=== PATIENT | female | born 1985 | race African-American/Black ===

== ENCOUNTER 2018-07-29 02:02 | Emergency (ER) | payer SELFPAY ==
[2018-07-29] MEDS ORDERED: Albuterol 6.7 GM Inhaler INH ONE (02:29)
[2018-07-29] MEDS ORDERED: Codeine/Promethazine 10-6.25 MG/5 ML Syrup 5 ML UD Cup PO ONE (02:30)
--- NOTE | 2018-07-29 02:51 | EDM.PDOC ---
ED HPI GENERAL MEDICAL PROBLEM - General Chief Complaint: Respiratory Problem Stated Complaint: COUGH Time Seen by Provider: 07/29/18 02:19 Source of Information: Reports: Patient History Limitations: Reports: No Limitations - History of Present Illness INITIAL COMMENTS - FREE TEXT/NARRATIVE: The patient presents with a cough for about 2 weeks. She also has some congestion and runny nose. She has ear pressure. She does not smoke and she as no history of asthma. She has not been running much of a fever. She does have some tightness in her chest at times with the cough. Onset: Gradual Duration: Week(s): (2) Location: Reports: Chest Quality: Reports: Other (Tightness) Severity: Moderate Improves with: Reports: None Worsens with: Reports: None Associated Symptoms: Reports: Cough, Shortness of Breath. Denies: Chest Pain, Fever/Chills, Headaches, Nausea/Vomiting Chest Pain Score (Numeric/FACES): 7 - Related Data Allergies Allergy/AdvReac Type Severity Reaction Status Date / Time No Known Allergies Allergy Verified 07/29/18 02:14 Home Meds: Home Meds . 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: - Past Surgical History Female Surgical History: Reports: Section Social & Family History - Tobacco Use Smoking Status *Q: Never Smoker - Caffeine Use Caffeine Use: Reports: None - Recreational Drug Use Recreational Drug Use: No ED ROS GENERAL - Review of Systems Review Of Systems: See Below Constitutional: Reports: No Symptoms HEENT: Reports: No Symptoms Respiratory: Reports: Shortness of Breath, Cough Cardiovascular: Reports: No Symptoms Endocrine: Reports: No Symptoms GI/Abdominal: Reports: No Symptoms : Reports: No Symptoms Musculoskeletal: Reports: No Symptoms ED EXAM, GENERAL - Physical Exam Exam: See Below Exam Limited By: No Limitations General Appearance: Alert, No Apparent Distress Ears: Normal External Exam, Normal Canal, Normal TMs Nose: Normal Inspection Head: Atraumatic, Normocephalic Neck: Normal Inspection, Supple, Non-Tender. No: Lymphadenopathy (L), Lymphadenopathy (R) Respiratory/Chest: No Respiratory Distress, Wheezing (Slight) Cardiovascular: Regular Rate, Rhythm, No Edema, No Murmur GI/Abdominal: Soft, Non-Tender, No Organomegaly, No Mass Back Exam: Normal Inspection Extremities: Normal Inspection Neurological: Alert, Oriented, No Motor/Sensory Deficits Course - Vital Signs Last Recorded V/S: Last Vital Signs Temp 97.9 F 07/29/18 02:10 Pulse 104 H 07/29/18 02:10 Resp 20 07/29/18 02:10 BP 130/79 07/29/18 02:10 Pulse Ox 100 07/29/18 02:42 - Orders/Labs/Meds Orders: Active Orders 24 hr Category Date Time Status RT Post Treatment Assessment [RC] Click to Edit Care 07/29/18 02:29 Active RT Pre-Treatment Assessment [RC] Click to Edit Care 07/29/18 02:29 Active CXR [Chest 2V] [CR] Stat Exams 07/29/18 02:30 Ordered Meds: Medications Discontinued Medications Generic Name Dose Route Start Last Admin Trade Name Michelle PRN Reason Stop Dose Admin Albuterol 1 gm 07/29/18 02:29 07/29/18 02:36 Proventil Hfa INH 07/29/18 02:30 2 puff ONETIME ONE Administration Promethazine HCl/Codeine 10 ml 07/29/18 02:30 07/29/18 02:47 Phenergan With Codeine PO 07/29/18 02:31 10 ml ONETIME ONE Administration - Re-Assessments/Exams Free Text/Narrative Re-Assessment/Exam: 07/29/18 02:49 I ordered a CXR, albuterol and phenergan with codeine for the cough. 07/29/18 03:08 Her CXR looks good. She does feel a little better. I will get her a prescription for more medicine. Departure - Departure Time of Disposition: 03:10 Disposition: Home, Self-Care 01 Condition: Good Clinical Impression: Bronchitis Sinusitis Qualifiers: Sinusitis location: unspecified location Chronicity: acute Recurrence: non- recurrent Qualified Code(s): J01.90 - Acute sinusitis, unspecified - Discharge Information *PRESCRIPTION DRUG MONITORING PROGRAM REVIEWED*: No *COPY OF PRESCRIPTION DRUG MONITORING REPORT IN PATIENT MARILEE: No Referrals: PCP,None [Primary Care Provider] - Skinny Maria PA [Physician Health Informatics Specialist] - 1 Week Forms: ED Department Discharge Additional Instructions: Take the zithromax 2 pills on day 1 and 1 pill on day 2 through 5. Use the inhaler 2 puffs every 4 to 6 hours as needed for shortness of breath. Take the phenergan with codeine for the cough every 6 hours. Please return if you are worse. - My Orders Last 24 Hours: My Active Orders 07/29/18 02:29 RT Post Treatment Assessment [RC] Click to Edit RT Pre-Treatment Assessment [RC] Click to Edit 07/29/18 02:30 CXR [Chest 2V] [CR] Stat - Assessment/Plan Last 24 Hours: My Active Orders 07/29/18 02:29 RT Post Treatment Assessment [RC] Click to Edit RT Pre-Treatment Assessment [RC] Click to Edit 07/29/18 02:30 CXR [Chest 2V] [CR] Stat
--- NOTE | 2018-07-31 14:25 | CR ---
Chest: Two views of the chest were obtained. Comparison: No previous chest x-ray. Heart size and mediastinum are normal. Lungs are clear. Bony structures are within normal limits. Impression: 1. Nothing acute is seen on two-view chest x-ray. Diagnostic code #1
== END 2018-07-29 03:16 | disposition home or self-care (01) ==
LOC: JD.ED 02:02
DX: J40 Bronchitis, not specified as acute or chronic (principal); J01.90 Acute sinusitis, unspecified
CPT/HCPCS: 71046; 94640; 99284; A9270

== ENCOUNTER 2018-08-05 09:00 | Emergency (ER) | payer SELFPAY ==
--- NOTE | 2018-08-05 09:34 | EDM.PDOC ---
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 Patient started spotting yesterday very Lightly. She is going to 1 or 2 pads daily. Several days before this started the patient had 2 positive tests at home. Her last normal period was july. If she is indeed she is a 4 para 3. Patient denies any ongoing medical problems all 3 of her last pregnancies were delivered via . She has no cramping or contractions at this time Pelvic Pain Score (Numeric/FACES): 3 - Related Data Allergies Allergy/AdvReac Type Severity Reaction Status Date / Time No Known Allergies Allergy Verified 08/05/18 09:09 Home Meds: Home Meds . 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 Denies: Dysuria, Frequency, Hematuria, Incontinence ED EXAM - Physical Exam Exam: See Below Exam Limited By: No Limitations General Appearance: Alert, No Apparent Distress Head: Atraumatic, Normocephalic Neck: Normal Inspection, Supple, Non-Tender, Full Range of Motion Respiratory/Chest: No: No Respiratory Distress, Lungs Clear, Normal Breath Sounds Cardiovascular: Regular Rate, Rhythm, No Edema, No Murmur GI/Abdominal Exam: Normal Bowel Sounds, Soft, Other (Right lower quadrant discomfort worse in the midline suprapubic area) Back Exam: No: Normal Inspection, Full Range of Motion Course - Vital Signs Last Recorded V/S: Last Vital Signs Temp 36.4 C 08/05/18 09:10 Pulse 99 08/05/18 09:10 Resp 16 08/05/18 09:10 BP 118/89 08/05/18 09:10 Pulse Ox 99 08/05/18 09:10 - Orders/Labs/Meds Labs: Laboratory Tests 08/05/18 08/05/18 08/05/18 Range/Units 09:24 09:44 09:44 WBC 8.74 (3.98-10.04) K/mm3 RBC 4.67 (3.98-5.22) M/mm3 Hgb 12.2 (11.2-15.7) gm/L Hct 37.8 (34.1-44.9) % MCV 80.9 (79.4-94.8) fl MCH 26.1 (25.6-32.2) pg MCHC 32.3 (32.2-35.5) g/dl RDW Std Deviation 45.7 (36.4-46.3) fL Plt Count 399 H (182-369) K/mm3 MPV 10.0 (9.4-12.3) fl Neutrophils % (Manual) 69 H (40-60) % Band Neutrophils % 0 (0-10) % Lymphocytes % (Manual) 27 (20-40) % Atypical Lymphs % 0 % Monocytes % (Manual) 3 (2-10) % Eosinophils % (Manual) 0 L (0.7-5.8) % Basophils % (Manual) 1 (0.1-1.2) Metamyelocytes % 0 Myelocytes % 0 Promyelocytes % 0 Blast Cells % 0 Plasma Cell % (Manual) 0 Nucleated RBCs 0.0 % Platelet Estimate Adequate RBC Morph Comment Normal PT (9.5-12.1) SECONDS INR APTT (24-31) SECONDS HCG, Qual Positive H (NEGATIVE) HCG, Quant 16.0 mIU/mL Urine Color (Yellow) Urine Appearance (Clear) Urine pH (5.0-8.0) Ur Specific [place] (1.005-1.030) Urine Protein (Negative) Urine Glucose (UA) (Negative) Urine Ketones (Negative) Urine Occult Blood (Negative) Urine Nitrite (Negative) Urine Bilirubin (Negative) Urine Urobilinogen (0.2-1.0) Ur Leukocyte Esterase (Negative) Urine RBC (0-5) /hpf Urine WBC (0-5) /hpf Ur Epithelial Cells (0-5) /hpf Urine Bacteria (FEW) /hpf Urine Mucus (FEW) /hpf Blood Type Gel Antibody Screen Rhogam Indicated 08/05/18 08/05/18 08/05/18 Range/Units 09:44 09:44 11:40 WBC (3.98-10.04) K/mm3 RBC (3.98-5.22) M/mm3 Hgb (11.2-15.7) gm/L Hct (34.1-44.9) % MCV (79.4-94.8) fl MCH (25.6-32.2) pg MCHC (32.2-35.5) g/dl RDW Std Deviation (36.4-46.3) fL Plt Count (182-369) K/mm3 MPV (9.4-12.3) fl Neutrophils % (Manual) (40-60) % Band Neutrophils % (0-10) % Lymphocytes % (Manual) (20-40) % Atypical Lymphs % % Monocytes % (Manual) (2-10) % Eosinophils % (Manual) (0.7-5.8) % Basophils % (Manual) (0.1-1.2) Metamyelocytes % Myelocytes % Promyelocytes % Blast Cells % Plasma Cell % (Manual) Nucleated RBCs % Platelet Estimate RBC Morph Comment PT 10.5 (9.5-12.1) SECONDS INR 0.96 APTT 28 (24-31) SECONDS HCG, Qual (NEGATIVE) HCG, Quant mIU/mL Urine Color Yellow (Yellow) Urine Appearance Clear (Clear) Urine pH 6.0 (5.0-8.0) Ur Specific [place] 1.025 (1.005-1.030) Urine Protein Negative (Negative) Urine Glucose (UA) Negative (Negative) Urine Ketones Negative (Negative) Urine Occult Blood 2+ H (Negative) Urine Nitrite Negative (Negative) Urine Bilirubin Negative (Negative) Urine Urobilinogen 0.2 (0.2-1.0) Ur Leukocyte Esterase Negative (Negative) Urine RBC 5-10 H (0-5) /hpf Urine WBC 0-5 (0-5) /hpf Ur Epithelial Cells 0-5 (0-5) /hpf Urine Bacteria Rare (FEW) /hpf Urine Mucus Few (FEW) /hpf Blood Type AB NEGATIVE Gel Antibody Screen Negative Rhogam Indicated Yes - Re-Assessments/Exams Free Text/Narrative Re-Assessment/Exam: 08/05/18 14:[address] Polanco reviewed the labs and the findings it's pointless to check an ultrasound with quantitative hCG this low and Dr. Polanco agrees. The patient will receive RhOgam and will be discharged with instructions to follow- up with Dr. Polanco on Tuesday. Departure - Departure Time of Disposition: 14:03 Disposition: Home, Self-Care 01 Clinical Impression: Threatened - Discharge Information Referrals: PCP,None [Primary Care Provider] - Mina Polanco MD [Physician] - Forms: ED Department Discharge Additional Instructions: Return to the emergency room with any questions problems worsening symptoms return with heavy bleeding as we discussed. Follow-up with Dr. Polanco on Tuesday
== END 2018-08-05 14:30 | disposition home or self-care (01) ==
LOC: JD.ED 09:00
DX: O20.0 Threatened abortion (principal)
CPT/HCPCS: 36415; 81001; 84702; 84703; 85007; 85027; 85610; 85730; 86850; 86900; 86901; 99284; J2790

== ENCOUNTER 2019-01-09 22:24 | Emergency (ER) | payer BC ==
[2019-01-09] MEDS ORDERED: Metoclopramide 10 MG/2 ML SDV IVPUSH ONE (22:59)
[2019-01-09] MEDS ORDERED: HYDROmorphone 1 MG/ML Syringe IVPUSH ONE (22:59)
--- NOTE | 2019-01-09 22:59 | EDM.PDOC ---
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 Pain is strongly colicky and comes and goes. Started about noon hour today. She is known to be about 14 weeks gestation. She is 6 para 3 .spontaneous abortions 2. I history there is some terminal dysuria. She denies any spotting or bleeding per vagina. She reports her bowels have been more on the constipated side. No blood per rectum. Onset: Today Onset Date: 01/09/19 Onset Time: 12:00 Duration: Hour(s): Location: Reports: Abdomen (Diffuse lower abdominal pain over her uterus. No slight menstrual cramps.) Quality: Reports: Other (Strong colicky component to the pain. I.e.) Severity: Severe (cramps. 8-9 out of 10.) Improves with: Reports: None Worsens with: Reports: None Context: Denies: Activity, Exercise, Lifting, Sick Contact, Trauma, Other Associated Symptoms: Reports: Nausea/Vomiting (Mild nausea so she with the pain but no vomiting). 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 (About mid afternoon she took Tylenol with no relief.) Bilateral Lower Abdomen Pain Score (Numeric/FACES): 9 - Related Data Allergies Allergy/AdvReac Type Severity Reaction Status Date / Time No Known Allergies Allergy Verified 01/10/19 01:06 Home Meds: Home Meds 148/Iron/Folate 6/Dha [Tendera-Ob Softgel] 1 cap PO DAILY 01/10/19 [ History] Past Medical History - Past Health History Medical/Surgical History: Denies 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 Denies: Fever, Chills, Malaise, Weakness HEENT: Reports: No Symptoms Respiratory: Reports: No Symptoms Cardiovascular: Reports: No Symptoms Endocrine: Reports: Fatigue GI/Abdominal: Reports: Abdominal Pain (See history of present illness), Constipation : Reports: Frequency, Other (Some terminal dysuria.) Musculoskeletal: Reports: Back Pain Skin: Reports: No Symptoms (Mild diffuse low back pain) Neurological: Reports: No Symptoms Psychiatric: Reports: No Symptoms Hematologic/Lymphatic: Reports: No Symptoms Immunologic: Reports: No Symptoms ED EXAM - Physical Exam Exam: See Below Exam Limited By: No Limitations General Appearance: Alert, WD/WN, Moderate Distress (She is in obvious pain and discomfort.) Eye Exam: Bilateral Eye: Normal Inspection Throat/Mouth: Normal Inspection, Normal Lips, Normal Teeth, Normal Oropharynx Respiratory/Chest: No Respiratory Distress, Lungs Clear, Normal Breath Sounds, No Accessory Muscle Use, Respiratory Distress (20/m due to pain response) Cardiovascular: Normal Peripheral Pulses, Regular Rate, Rhythm, No Edema, No Murmur, No Rub, Tachycardia (Mild tachycardia at 10 2/m.) GI/Abdominal Exam: Abnormal Bowel Sounds (Flaccid bowel sounds.), Other (Gravid uterus which would measure 18 weeks clinically. She is supposedly 14 weeks gestation i.e. uterus is larger than one would anticipate. Apparently previous ultrasound demonstrated only one pedersen fetus.) Fundal Height In cm: 18 Heart Tones: Not [place] (Not able to hear my stethoscope.) Heart Tones per Min: 168 (This was on abdominal ultrasound.) Movement: Active (On Doppler ultrasound.) Back Exam: Normal Inspection, Full Range of Motion. No: CVA Tenderness (L), CVA Tenderness (R) Extremities: Normal Inspection, Normal Range of Motion, Non-Tender Neurological: Alert, Oriented, CN II-XII Intact, Normal Cognition Psychiatric: Anxious, Other Skin Exam: Warm (In a good deal of pain.), Dry, Intact, Normal Color, No Rash Course - Vital Signs Last Recorded V/S: Last Vital Signs Temp 36.4 C 01/09/19 22:33 Pulse 102 H 01/09/19 22:33 Resp 20 01/09/19 22:33 BP 143/88 H 01/09/19 22:33 Pulse Ox 97 01/09/19 22:33 - Orders/Labs/Meds Orders: Active Orders 24 hr Category Date Time Status OB Ltd 1 or More Fetus [US] Stat Exams 01/09/19 22:55 Taken Dextrose 5%-0.9% NaCl [Dextrose 5%-Normal Saline] 1,000 Med 01/09/19 23:00 Active ml IV ASDIRECTED Medication Orders Dextrose/Sodium Chloride (Dextrose 5%-Normal Saline) 1,000 mls @ 999 mls/hr IV ASDIRECTED JORDI Last Admin: 01/09/19 23:12 Dose: 999 mls/hr Labs: Laboratory Tests 01/09/19 01/09/19 01/09/19 Range/Units 23:07 23:07 23:07 WBC 14.74 H (3.98-10.04) K/mm3 RBC 4.32 (3.98-5.22) M/mm3 Hgb 11.7 (11.2-15.7) gm/L Hct 35.2 (34.1-44.9) % MCV 81.5 (79.4-94.8) fl MCH 27.1 (25.6-32.2) pg MCHC 33.2 (32.2-35.5) g/dl RDW Std Deviation 50.5 H (36.4-46.3) fL Plt Count 301 (182-369) K/mm3 MPV 9.7 (9.4-12.3) fl Neutrophils % (Manual) 65 H (40-60) % Band Neutrophils % 9 (0-10) % Lymphocytes % (Manual) 24 (20-40) % Atypical Lymphs % 0 % Monocytes % (Manual) 2 (2-10) % Eosinophils % (Manual) 0 L (0.7-5.8) % Basophils % (Manual) 0 L (0.1-1.2) Toxic Granulation 1+ slight Platelet Estimate Adequate Plt Morphology Comment Normal RBC Morph Comment Normal Sodium 136 (136-145) mEq/L Potassium 3.5 (3.5-5.1) mEq/L Chloride 102 (98-107) mEq/L Carbon Dioxide 23 (21-32) mEq/L Anion Gap 14.5 (5-15) BUN 11 (7-18) mg/dL Creatinine 0.7 (0.55-1.02) mg/dL Est Cr Clr Drug Dosing 121.30 mL/min Estimated GFR (MDRD) > 60 (>60) mL/min BUN/Creatinine Ratio 15.7 (14-18) Glucose 119 H (74-106) mg/dL Calcium 8.7 (8.5-10.1) mg/dL Total Bilirubin 0.1 L (0.2-1.0) mg/dL AST 21 (15-37) U/L ALT 50 (14-59) U/L Alkaline Phosphatase 60 (46-116) U/L C-Reactive Protein 0.3 (<1.0) mg/dL Total Protein 7.2 (6.4-8.2) g/dl Albumin 2.8 L (3.4-5.0) g/dl Globulin 4.4 gm/dL Albumin/Globulin Ratio 0.6 L (1-2) Urine Color (Yellow) Urine Appearance (Clear) Urine pH (5.0-8.0) Ur Specific Carter (1.005-1.030) Urine Protein (Negative) Urine Glucose (UA) (Negative) Urine Ketones (Negative) Urine Occult Blood (Negative) Urine Nitrite (Negative) Urine Bilirubin (Negative) Urine Urobilinogen (0.2-1.0) Ur Leukocyte Esterase (Negative) Urine RBC (0-5) /hpf Urine WBC (0-5) /hpf Ur Squamous Epith Cells (0-5) /hpf Urine Bacteria (FEW) /hpf Urine Mucus (FEW) /hpf Blood Type AB NEGATIVE Gel Antibody Screen Negative 01/10/19 Range/Units 00:02 WBC (3.98-10.04) K/mm3 RBC (3.98-5.22) M/mm3 Hgb (11.2-15.7) gm/L Hct (34.1-44.9) % MCV (79.4-94.8) fl MCH (25.6-32.2) pg MCHC (32.2-35.5) g/dl RDW Std Deviation (36.4-46.3) fL Plt Count (182-369) K/mm3 MPV (9.4-12.3) fl Neutrophils % (Manual) (40-60) % Band Neutrophils % (0-10) % Lymphocytes % (Manual) (20-40) % Atypical Lymphs % % Monocytes % (Manual) (2-10) % Eosinophils % (Manual) (0.7-5.8) % Basophils % (Manual) (0.1-1.2) Toxic Granulation Platelet Estimate Plt Morphology Comment RBC Morph Comment Sodium (136-145) mEq/L Potassium (3.5-5.1) mEq/L Chloride (98-107) mEq/L Carbon Dioxide (21-32) mEq/L Anion Gap (5-15) BUN (7-18) mg/dL Creatinine (0.55-1.02) mg/dL Est Cr Clr Drug Dosing mL/min Estimated GFR (MDRD) (>60) mL/min BUN/Creatinine Ratio (14-18) Glucose (74-106) mg/dL Calcium (8.5-10.1) mg/dL Total Bilirubin (0.2-1.0) mg/dL AST (15-37) U/L ALT (14-59) U/L Alkaline Phosphatase (46-116) U/L C-Reactive Protein (<1.0) mg/dL Total Protein (6.4-8.2) g/dl Albumin (3.4-5.0) g/dl Globulin gm/dL Albumin/Globulin Ratio (1-2) Urine Color Yellow (Yellow) Urine Appearance Clear (Clear) Urine pH 6.0 (5.0-8.0) Ur Specific Carter 1.015 (1.005-1.030) Urine Protein Negative (Negative) Urine Glucose (UA) Trace H (Negative) Urine Ketones Negative (Negative) Urine Occult Blood Negative (Negative) Urine Nitrite Negative (Negative) Urine Bilirubin Negative (Negative) Urine Urobilinogen 0.2 (0.2-1.0) Ur Leukocyte Esterase Negative (Negative) Urine RBC 0-5 (0-5) /hpf Urine WBC 0-5 (0-5) /hpf Ur Squamous Epith Cells 0-5 (0-5) /hpf Urine Bacteria Few (FEW) /hpf Urine Mucus Rare (FEW) /hpf Blood Type Gel Antibody Screen Meds: Medications Generic Name Dose Route Start Last Admin Trade Name Freq PRN Reason Stop Dose Admin Dextrose/Sodium Chloride 1,000 mls @ 999 mls/hr 01/09/19 23:00 01/09/19 23:12 Dextrose 5%-Normal Saline IV 999 mls/hr ASDIRECTED JORDI Administration Discontinued Medications Generic Name Dose Route Start Last Admin Trade Name Michelle PRN Reason Stop Dose Admin Hydromorphone HCl 1 mg 01/09/19 22:59 01/09/19 23:16 Dilaudid IVPUSH 01/09/19 23:00 1 mg ONETIME ONE Administration Lactulose 20 gm 01/10/19 00:39 01/10/19 00:54 Cephulac PO 01/10/19 00:40 20 gm ONETIME ONE Administration Metoclopramide HCl 10 mg 01/09/19 22:59 01/09/19 23:14 Reglan IVPUSH 01/09/19 23:00 10 mg ONETIME ONE Administration - Radiology Interpretation Free Text/Narrative:: 33-year-old female presents to the ED with diffuse suprapubic abdominal pain and very tender uterus on examination. She is 6 para 3 with 2 previous miscarriages. She denies any spotting or bleeding per vagina. Pain is strongly colicky and she states mimics menstrual cramps. She clinically is around 14 weeks gestation by ultrasound completed in the past. Pain started around noon hour today but is gradually worsened as the evening is gone on. She's been having problems with constipation. She also appreciates some terminal dysuria without any urgency. There is associated frequency related to the . Bedside ultrasound should reveals an active fetus with heart rate around 1 68/ m. On my assessment of the placenta I could not see any evidence of an abruption . Her uterus however is extremely tender to palpation. It appears that she may well be steffen. Plan ultrasound will be ordered. IV fluids will be given D5 normal saline at open. Routine labs to be collected including type and screen. Urinalysis will be collected. Given Dilaudid 1 mg IV and Reglan 10 mg IV for acute pain relief. She found the ultrasound extremely uncomfortable that I did at the bedside. - Re-Assessments/Exams Free Text/Narrative Re-Assessment/Exam: 01/10/19 00:23 White count is elevated at 14.74. Differential pending. Hemoglobin slightly low 11.7. Hematocrit of 35.2. Platelet count 301,000. Sodium 136 with a potassium of 3.5. Chloride is 102 with a bicarbonate of 23. Anion gap is 14.5. BUN is 11 with a creatinine of 0.7. GFR remains greater than 60. Glucose is 119. Calcium is 8.7 with a total bilirubin of 0.1. Liver function is otherwise normal. Total protein is 7.2 with albumin fraction slightly low at 2.8. Urinalysis thus far is not showing any signs of active infection with negative leukocyte esterase. 01/10/19 00:24 I had a look at the ultrasound that was performed by the optics test technician and I did not see any evidence of placenta previa either. They documented a heart rate of 161 bpm. The estimated gestation to be 15 weeks and 2 days. They agree with placenta being right lateral with signs of previa. Amniotic fluid volume look to be normal. She has no further pain and no pain on palpation of the uterus. She does admit to being fairly constipated with increased difficulties particularly yesterday trying to have a bowel movement. I 'm therefore going to give her a dose of lactulose 20 g by mouth now. She has no appointment with her OB physician( Dr Mina Polanco) later today. She feels she' ll be fine to go home at this point time. Of note her blood type is AB neg. 01/10/19 01:08 Differential came back on her white count at 65% neutrophils and 9% band cells. Of note the patient was afebrile. I found no signs of peritonitis or peritoneal irritation on exam other than acutely tenderness over the anterior wall of the uterus on exam. Urinalysis was negative. CRP was less than 0.3. It may be prudent to repeat her CBC and differential tomorrow or later today when she sees Dr. Polanco cause of her bandemia is certainly not evident clinically. Concern for possible appendicitis is in the differential diagnosis. Departure - Departure Time of Disposition: 00:39 Disposition: Home, Self-Care 01 Condition: Fair Clinical Impression: Abdominal pain affecting , Constipation by delayed colonic transit, Neutrophilic leukocytosis - Discharge Information *PRESCRIPTION DRUG MONITORING PROGRAM REVIEWED*: Not Applicable *COPY OF PRESCRIPTION DRUG MONITORING REPORT IN PATIENT MARILEE: Not Applicable Instructions: Abdominal Pain During , [id number], Constipation, Adult, [id number] Referrals: Mina Polanco MD [Primary Care Provider] - Forms: ED Department Discharge Additional Instructions: Evaluation the emergency room tonight in regards to development of diffuse lower abdominal cramping pain mostly suprapubically oral across the lower abdomen. You're known to be into the second trimester and ultrasound done confirms a pedersen at 15 weeks and 2 days gestation. Normal amount of amniotic fluid. No signs of any placenta previa or bleeding behind the uterus. Urinalysis came back negative for infection. Therefore the most likely cause of the abdominal cramping pain was the bowel i.e. due to constipation. I therefore gave you a dose of lactulose 20 g by mouth before he left the department with ligature bowels moving by morning. Suggest starting MiraLAX powder 17 g or 1 scoop daily to prevent constipation. Constipation will often improve after 20 weeks of as the uterus moves up and away from the large bowel or colon. Follow-up with Dr. Polanco later today as planned. - My Orders Last 24 Hours: My Active Orders 01/09/19 22:55 OB Ltd 1 or More Fetus [US] Stat 01/09/19 23:00 Dextrose 5%-0.9% NaCl [Dextrose 5%-Normal Saline] 1,000 ml IV ASDIRECTED - Assessment/Plan Last 24 Hours: My Active Orders 01/09/19 22:55 OB Ltd 1 or More Fetus [US] Stat 01/09/19 23:00 Dextrose 5%-0.9% NaCl [Dextrose 5%-Normal Saline] 1,000 ml IV ASDIRECTED
[2019-01-09] MEDS ORDERED: Dextrose 5%-0.9% NaCl 1,000 ML IV SCH (23:00)
[2019-01-10] MEDS ORDERED: Lactulose Soln 10 GM/15 ML 30 ML UD Cup PO ONE (00:39)
--- NOTE | 2019-01-10 07:28 | US ---
Limited obstetrical ultrasound: Multiple real-time images were obtained transabdominally. Comparison: No previous studies from current . Dates: Current ultrasound: [facility] 07/01/19, gestational age 15 weeks 2 days presentation: Mobile Placenta: Right lateral with no findings of placenta previa or abruption. Amniotic fluid: Appears visually within normal limits. Measurements: BPD: 2.87 cm - 15 weeks 1 day Head circumference: 11.04 cm - 15 weeks 2 days Abdominal circumference: 9.06 cm - 15 weeks 2 days Femur length: 1.80 cm - 15 weeks 2 days Estimated weight: 120 g (0 lbs. 4 oz.), estimated weight at the 70th percentile Heart rate: 161 bpm Cervical length: 3.9 cm Impression: 1. Single intrauterine fetus mobile in presentation. Dates as noted above. 2. No complicating process is seen by ultrasound at this time. Diagnostic code #1 I agree with preliminary report from [facility], finalized on 01/10/19, 1:20 AM Central Time
== END 2019-01-10 01:00 | disposition home or self-care (01) ==
LOC: JD.ED 22:24
DX: O09.521 Supervision of elderly multigravida, first trimester (principal); Z3A.14 14 weeks gestation of pregnancy; O99.611 Diseases of the digestive system complicating pregnancy, first trimester; K59.01 Slow transit constipation; O99.281 Endocrine, nutritional and metabolic diseases complicating pregnancy, first trimester; D72.828 Other elevated white blood cell count; Z79.899 Other long term (current) drug therapy
CPT/HCPCS: 36415; 76815; 80053; 81001; 85007; 85027; 86140; 86850; 86900; 86901; 96361; 96374; 96375; 99284; A9270; J1170; J2765; J7042

== ENCOUNTER 2019-06-27 05:13 | Inpatient (IN) | payer BC ==
--- NOTE | 2019-06-20 14:07 | PCM.LDHP ---
L&D History of Present Illness - General Date of Service: 06/20/19 Admit Problem/Dx: Admission Diagnosis/Problem Admission Diagnosis/Problem Source of Information: Patient History Limitations: Reports: No Limitations - History of Present Illness Introduction:: Kiki Stockton is a 34-year-old currently at 38 weeks 0 days on 06/20/2019 by LMP consistent with 7 week ultrasound ([facility]I 07/04/2019) who presents for preoperative appointment on 06/20/2019 for scheduled repeat section on 06/27/2019. At today's appointment she reports that she is overall doing well and does not have any significant concerns. Reports that she did have some contractions this last Tuesday on 06/17/2019 that lasted for a few hours but resolved spontaneously. She has not had any additional contractions, cramping or abdominal tightening since then. She denies any leaking of fluid or vaginal bleeding. Her blood sugars have been very well controlled for this last week and throughout the on metformin 500 mg twice daily. She denies any hypoglycemic episodes with use of the metformin. Present Illness Comments:: Kiki Stockton is a 34-year-old currently at 38 weeks 0 days by LMP consistent with 7 week ultrasound on 06/20/2019 ([facility]I 07/04/2019) who scheduled to have repeat section once she is 39 weeks gestational age on 06/27/2019. She has had overall uncomplicated care however she was diagnosed with gestational diabetes at 29 weeks gestational age. She was eventually started on metformin 500 mg twice daily and this was able to control her blood glucose levels. She received TDaP vaccine on 04/11/2019 and influenza vaccine on 05/02/2019. Her care has been complicated by: * A2 gestational diabetes - patient diagnosed at 29 weeks gestational age and was started on metformin 500 mg twice daily. This is been able to control her blood sugars very well and she has not needed any additional changes for her metformin dosing. testing has all been normal. most recently on ultrasound on 06/20/2019 came back with estimated weight of 3906 g (8 lbs. 10 oz.) (86th percentile). * History of section 3 * Rh- status and received RhoGAM at 28 weeks gestational age on 04/11/2019 * Advanced maternal age with maternal age of 34 at time of delivery and negative [place] genetic screening testing * ancestry with negative hemoglobin solubility testing and low risk for sickle cell disease or trait labs Blood type: AB negative Antibody screen: Negative First trimester hematocrit/hemoglobin: 36.3%/12.0 on 12/13/2018 Platelets: 329 on 12/13/2018 Urine culture: Mixed growth suggestive of contamination Rubella status: Immune Hepatitis B surface antigen: Negative RPR: Negative HIV: Negative Gonorrhea: Negative Chlamydia: Negative Hemoglobin solubility: Normal [place] genetic screening: Negative, low risk for trisomy 21, 13 or 18 Anatomy ultrasound: Normal anatomy, no abnormalities, 58th percentile, anterior placenta, no previa, 3 vessel cord One hour glucose tolerance test: 174 3 hour glucose tolerance test: Fasting 96, 1 hour 201, 2 hour 171, 3 hour 69 Second trimester hematocrit/hemoglobin: 30.7%/13.0 on 03/22/2019 Platelets: 219 on 03/22/2019 RhoGAM given on 04/11/2019 GBS status: Positive - Related Data Allergies/Adverse Reactions: Allergies Allergy/AdvReac Type Severity Reaction Status Date / Time No Known Allergies Allergy Verified 01/10/19 01:06 Home Medications: Home Meds 148/Iron/Folate 6/Dha [Tendera-Ob Softgel] 1 cap PO DAILY 01/10/19 [ History] Past Medical History - Past Health History Medical/Surgical History: Denies 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: , 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 : 6 Para: 3 - Past Surgical History Female Surgical History: Reports: Section (x 3) Social & Family History - Family History Family Medical History: Noncontributory - Tobacco Use Smoking Status *Q: Never Smoker - Tobacco Core Measures Tobacco Use/Smoking Within Last 30 Days: No Smokeless Tobacco Use in Last 30 Days: No - Caffeine Use Caffeine Use: Reports: None - Alcohol Use Alcohol Use History: No - Recreational Drug Use Recreational Drug Use: No Drug Use in Last 12 Months: No - Living Situation & Occupation Living situation: Reports: 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 Denies : Dysuria, Frequency, Burning, Urgency Musculoskeletal: Denies: Back Pain Skin: Denies: Rash, Lesions Psychiatric: Denies: Depression, Anxiety Hematologic/Lymphatic: Denies: Anemia, Easy Bleeding, Easy Bruising L&D Exam - Exam Exam: See Below - Vital Signs Vital Signs: BP: 114/68 Weight: 104.145 kg - OB Specific Fundal Height In cm: 38 Movement: Active Heart Tones: Present Heart Tones per Min: 145 Estimated Weight: 8 lb 10 oz on ultrasound - Exam General: Alert, Oriented HEENT: Conjunctiva Clear, EOMI Neck: Supple, Trachea Midline Lungs: Clear to Auscultation, Normal Respiratory Effort Cardiovascular: Regular Rate, Regular Rhythm GI/Abdominal Exam: Soft, Non-Tender, No Distention, Other (Gravid). No: Guarding, Rigid, Rebound Extremities: Normal Inspection, No Pedal Edema Skin: Warm, Dry, Intact Psychiatric: Alert, Normal Affect, Normal Mood - Problem List (1) 39 weeks gestation of SNOMED Code(s): 16285382 ICD Code: Z3A.39 - 39 WEEKS GESTATION OF Status: Acute (2) Oral hypoglycemic controlled White classification A2 gestational diabetes mellitus (GDM) SNOMED Code(s): 78129732 ICD Code: O24.415 - GESTATNL DIABETES IN PREG, CTRL BY ORAL HYPOGLYCEMIC DRUGS Status: Acute (3) History of delivery SNOMED Code(s): 230208025 ICD Code: Z98.891 - HISTORY OF UTERINE SCAR FROM PREVIOUS SURGERY Status: Acute (4) History of delivery, currently SNOMED Code(s): 716382453, 248054468 ICD Code: O34.219 - MATERNAL CARE FOR UNSP TYPE SCAR FROM PREVIOUS DEL Status: Acute (5) Rh negative status during SNOMED Code(s): 394837100 ICD Code: O26.899 - OTH RELATED CONDITIONS, UNSPECIFIED TRIMESTER; Z67.91 - UNSPECIFIED BLOOD TYPE, RH NEGATIVE Status: Acute (6) Advanced maternal age in multigravida SNOMED Code(s): 651490341 ICD Code: O09.529 - SUPERVISION OF ELDERLY MULTIGRAVIDA, UNSPECIFIED TRIMESTER Status: Acute (7) ancestry requiring population-specific genetic screening SNOMED Code(s): 69954515, 812283322, 835806639 ICD Code: Z13.79 - ENCNTR FOR OTH SCREENING FOR GENETIC AND CHROMSOML ANOMALIES Status: Acute (8) GBS (group B Streptococcus carrier), +RV culture, currently SNOMED Code(s): 6319798088928, 889917781, 2382210923302 ICD Code: O99.820 - STREPTOCOCCUS B CARRIER STATE COMPLICATING Status: Acute Problem List Initiated/Reviewed/Updated: Yes Assessment/Plan Comment:: Admit to inpatient after section NST prior to section Place IV and have Lactated Ringer's at 125 ml/hr SCDs for DVT prophylaxis Nothing by mouth Activity as tolerated Plan for spinal injection for anesthesia CBC, RPR and type and screen prior to surgery Plans to breast-feed after delivery We will follow up on infant's blood type to check for need for RhoGAM after delivery. Plan for Ancef 2 g IV for antibiotic prophylaxis prior to surgery Mina Polanco M.D. 4:00 p.m. 06/20/2019
[~2019-06-27 05:13] MED LIST: Citric Acid/Sodium Citrate Solution 30 ML Cup PO ONE; Lactated Ringers 1,000 ML IV SCH; Metoclopramide 10 MG/2 ML SDV IVPUSH ONE; Nalbuphine 10 MG/1 ML Vial IVPUSH PRN; Oxytocin/Lactated Ringers 10 UNIT/1,000 ML BAG IV SCH; Sodium Chloride 0.9% 10 ML Syringe FLUSH PRN; ceFAZolin 2 GM in Premix Bag 1 BAG IV ONE
[2019-06-27] MEDS ORDERED: Lactated Ringers 1,000 ML ONE ×2 (05:53→09:03)
[2019-06-27] MEDS ORDERED: Citric Acid/Sodium Citrate Solution 30 ML Cup ONE (06:54)
[2019-06-27] MEDS ORDERED: Ondansetron 4 MG/2 ML SDV ONE ×2 (06:54→07:12)
[2019-06-27] MEDS ORDERED: Metoclopramide 10 MG/2 ML SDV ONE (06:59)
[2019-06-27] MEDS ORDERED: Morphine PF 10 MG/10 ML SDV ONE (07:12)
[2019-06-27] MEDS ORDERED: Lactated Ringers 2,000 ML ONE (07:12)
[2019-06-27] MEDS ORDERED: Ketorolac 30 MG/ML SDV ONE (07:12)
[2019-06-27] MEDS ORDERED: ceFAZolin 1 GM Vial ONE (07:12)
[2019-06-27] MEDS ORDERED: Oxytocin 10 Units/1 ML SDV ONE (07:12)
[2019-06-27] MEDS ORDERED: Bupivacaine 0.5% 30 ML SDV ONE (07:29)
[2019-06-27] MEDS ORDERED: Phenylephrine/Normal Saline 100 MCG/ML 10 ML Syringe ONE (09:03)
[2019-06-27] MEDS ORDERED: Ondansetron 4 MG/2 ML SDV IVPUSH PRN (09:20)
[2019-06-27] MEDS ORDERED: fentaNYL 100 MCG/2 ML SDV IVPUSH PRN (09:20)
[2019-06-27] MEDS ORDERED: diphenhydrAMINE 50 MG/ML SDV IVPUSH PRN ×2 (09:20→11:04)
--- NOTE | 2019-06-27 09:20 | PCM.PREANE ---
Preanesthetic Assessment - Anesthesia/Transfusion/Family Hx Anesthesia History: Prior Anesthesia Without Reaction Family History of Anesthesia Reaction: No Transfusion History: No Prior Transfusion(s) - Review of Systems General: No Symptoms Pulmonary: No Symptoms Cardiovascular: No Symptoms Gastrointestinal: No Symptoms Neurological: No Symptoms Other: Reports: Diabetes (Gestational on Metformin for control. ) - Physical Assessment NPO Status Date: 06/26/19 NPO Status Time: 17:00 Vital Signs: Last Vital Signs Temp 36.7 C 06/27/19 04:51 Pulse 98 06/27/19 04:51 Resp 15 06/27/19 04:51 BP 118/78 06/27/19 04:51 Pulse Ox 96 06/27/19 04:51 Height: 1.78 m Weight: 102.965 kg ASA Class: 2 Mental Status: Alert & Oriented x3 Airway Class: Mallampati = 1 Dentition: Reports: Normal Dentition Thyro-Mental Finger Breadths: 3 Mouth Opening Finger Breadths: 3 ROM/Head Extension: Full Lungs: Clear to Auscultation, Normal Respiratory Effort Cardiovascular: Regular Rate, Regular Rhythm - Lab Values: Laboratory Last Values WBC 10.47 K/mm3 (3.98-10.04) H 06/27/19 05:45 RBC 4.33 M/mm3 (3.98-5.22) 06/27/19 05:45 Hgb 13.7 gm/dl (11.2-15.7) 06/27/19 05:45 Hct 39.7 % (34.1-44.9) 06/27/19 05:45 MCV 91.7 fl (79.4-94.8) 06/27/19 05:45 MCH 31.6 pg (25.6-32.2) 06/27/19 05:45 MCHC 34.5 g/dl (32.2-35.5) 06/27/19 05:45 RDW Std Deviation 44.0 fL (36.4-46.3) 06/27/19 05:45 Plt Count 170 K/mm3 (182-369) L 06/27/19 05:45 MPV 11.3 fl (9.4-12.3) 06/27/19 05:45 Neut % (Auto) 65.3 % (34.0-71.1) 06/27/19 05:45 Lymph % (Auto) 25.1 % (19.3-51.7) 06/27/19 05:45 [place] % (Auto) 8.3 % (4.7-12.5) 06/27/19 05:45 Eos % (Auto) 0.8 (0.7-5.8) 06/27/19 05:45 Baso % (Auto) 0.1 % (0.1-1.2) 06/27/19 05:45 Neut # (Auto) 6.84 K/mm3 (1.56-6.13) H 06/27/19 05:45 Lymph # (Auto) 2.63 K/mm3 (1.18-3.74) 06/27/19 05:45 [place] # (Auto) 0.87 K/mm3 (0.24-0.36) H 06/27/19 05:45 Eos # (Auto) 0.08 K/mm3 (0.04-0.36) 06/27/19 05:45 Baso # (Auto) 0.01 K/mm3 (0.01-0.08) 06/27/19 05:45 POC Glucose 73 mg/dL (70-105) 06/27/19 05:38 - Allergies Allergies/Adverse Reactions: Allergies Allergy/AdvReac Type Severity Reaction Status Date / Time No Known Allergies Allergy Verified 01/10/19 01:06 - Anesthesia Plan Pre-Op Medication Ordered: Other (Per OB standard orders. ) - Acknowledgements Anesthesia Type Planned: Spinal Pt an Appropriate Candidate for the Planned Anesthesia: Yes Alternatives and Risks of Anesthesia Discussed w Pt/Guardian: Yes Pt/Guardian Understands and Agrees with Anesthesia Plan: Yes PreAnesthesia Questionnaire - Past Health History Medical/Surgical History: Denies Medical/Surgical History MANAGER OF PATIENT History: Reports: , Spontaneous Endocrine/Metabolic History: Reports: Diabetes, Gestational - Past Surgical History Female Surgical History: Reports: Section - SUBSTANCE USE Smoking Status *Q: Never Smoker Second Hand Smoke Exposure: No Recreational Drug Use History: No - HOME MEDS Home Medications: Home Meds 148/Iron/Folate 6/Dha [Tendera-Ob Softgel] 1 cap PO DAILY 01/10/19 [ History] - CURRENT (IN HOUSE) MEDS Current Meds: Current Medications Lactated Ringer's (Ringers, Lactated) 1,000 mls @ 125 mls/hr IV ASDIRECTED [facility] Oxytocin/Lactated Ringer's (Pitocin In Lr 10 Units/1,000 Ml) 10 unit in 1,000 mls @ 100 mls/hr IV ASDIRECTED [facility] Nalbuphine HCl (Nubain) 10 mg IVPUSH Q2H PRN PRN Reason: Pain Sodium Chloride (Saline Flush) 10 ml FLUSH ASDIRECTED PRN PRN Reason: Keep Vein Open Discontinued Medications Bupivacaine HCl (Marcaine 0.5%) Confirm Administered Dose 30 ml .ROUTE .STK-MED ONE Stop: 06/27/19 07:30 Cefazolin Sodium (Ancef) Confirm Administered Dose 2 gm .ROUTE .STK-MED ONE Stop: 06/27/19 07:13 Citric Acid/Sodium Citrate (Bicitra Solution) 30 ml PO ONETIME ONE Stop: 06/27/19 04:52 Last Admin: 06/27/19 06:57 Dose: 30 ml Citric Acid/Sodium Citrate (Bicitra Solution) Confirm Administered Dose 30 ml .ROUTE .STK-MED ONE Stop: 06/27/19 06:55 Cefazolin Sodium/Dextrose 2 gm (/ Premix) 50 mls @ 100 mls/hr IV ONETIME ONE Stop: 06/27/19 05:20 Lactated Ringer's (Ringers, Lactated) Confirm Administered Dose 1,000 mls @ as directed .ROUTE .STK-MED ONE Stop: 06/27/19 05:54 Lactated Ringer's (Ringers, Lactated) Confirm Administered Dose 2,000 mls @ as directed .ROUTE .STK-MED ONE Stop: 06/27/19 07:13 Lactated Ringer's (Ringers, Lactated) Confirm Administered Dose 1,000 mls @ as directed .ROUTE .STK-MED ONE Stop: 06/27/19 09:04 Ketorolac Tromethamine (Toradol) Confirm Administered Dose 30 mg .ROUTE .STK- MED ONE Stop: 06/27/19 07:13 Metoclopramide HCl (Reglan) 10 mg IVPUSH ONETIME ONE Stop: 06/27/19 04:52 Last Admin: 06/27/19 07:01 Dose: 10 mg Metoclopramide HCl (Reglan) Confirm Administered Dose 10 mg .ROUTE .STK-MED ONE Stop: 06/27/19 07:00 Morphine Sulfate (Duramorph Pf) Confirm Administered Dose 10 mg .ROUTE .[facility]-MED ONE Stop: 06/27/19 07:13 Ondansetron HCl (Zofran) Confirm Administered Dose 4 mg .ROUTE .[facility] ONE Stop: 06/27/19 06:55 Ondansetron HCl (Zofran) Conf[facility] Stop: 06/27/19 07:13 Oxytocin (Pitocin) Confirm Administered Dose 20 unit .ROUTE .[facility]-MED ONE Stop: 06/27/19 07:13 Phenylephrine HCl (Phenylephrine In Ns 100 Mcg/Ml) Confirm Administered Dose 1 mg .ROUTE .[facility] ONE Stop: 06/27/19 09:04
--- NOTE | 2019-06-27 09:23 | PCM.POSTAN ---
POST ANESTHESIA ASSESSMENT - MENTAL STATUS Mental Status: Alert, Oriented - VITAL SIGNS Vital Signs: Last Vital Signs 0911 115/46 83 14 100% 98.1F - RESPIRATORY Respiratory Status: Respiratory Rate WNL, Airway Patent, O2 Saturation Stable, Supplemental Oxygen - CARDIOVASCULAR CV Status: Pulse Rate WNL, Blood Pressure Stable - GASTROINTESTINAL GI Status: No Symptoms - PAIN Pain Score: 0 - POST OP HYDRATION Hydration Status: Adequate & Stable
--- NOTE | 2019-06-27 10:36 | PCM.OPNOTE ---
- General Post-Op/Procedure Note Date of Surgery/Procedure: 06/27/19 Operative Procedure(s): Repeat section with with attempted vacuum extraction delivery with 2 pop offs with attempted vacuum extraction delivery of and delivered without use of acne extractor Findings: Grossly normal-appearing uterus with thin lower uterine segment. Normal- appearing bilateral fallopian tubes and ovaries. Live female infant delivered atraumatically in vertex presentation. weight of 3720 g (8 pounds 3 ounces). Apgars of 9 and 9. Pre Op Diagnosis: 39 weeks gestational age, history of section x3, A2 gestational diabetes, Rh- status, advanced maternal age, ancestry and GBS positive Post-Op Diagnosis: Same status post repeat section delivery Anesthesia Technique: Spinal Primary Surgeon: Mina Polanco Anesthesia Provider: Pooja Lazar Blow Mold Operator: Levi Maldonado Blow Mold Operator: Josie Brennan ([place] student) Reason Blow Mold Operator Was Necessary: Patient safety and reduction of morbidity and mortality. Role of Blow Mold Operator: Retraction for visualization and assistance with extraction of during delivery. Pathology: None Fluid Replacement, Intraop: 2,500 Output, Urine Amount: 400 EBL in mLs: 1,200 Complications: hemorrhage with EBL of 1200 mL Condition: Good Free Text/Narrative:: Intake & Output 06/26/19 06/27/19 06/27/19 22:59 06:59 14:59 Output Total 400 Balance -400 Procedure in Detail: The patient was seen on labor and delivery in room #4 and the risks, benefits and complications were discussed with the patient. The patient desired to proceed with section and appropriate consents were signed. The patient was taken to operating room #1. A Time Out was held and the patient was identified using 2 identifiers and the procedure was confirmed. The patient was given spinal anesthesia and was placed in dorsal supine position with leftward tilt. She was given 2 g Ancef for antibiotic prophylaxis. The patient was prepped and draped in the usual sterile manner. The abdominal skin was tested and the spinal anesthesia was found to be adequate. The skin was injected with 0.5% marcaine for local anesthesia. A Pfannenstiel skin incision was made and carried down through the subcutaneous tissue to the fascia with the scapel. The fascia was nicked in the midline using a scalpel and the fascial incision was extended transversely with Green scissors. The inferior aspect of the fascia was grasped with Guerrero clamps and tented upwards. The fascia was from the underlying rectus muscle bluntly and sharply with Green scissors. Attention was then turned to the superior aspect of the fascia and was grasped using Guerrero clamps and tented upwards. The underlying rectus muscle was dissected off bluntly and sharply with Green scissors. The peritoneum was identified and entered sharply with dissection using Green scissors. The utero-vesical peritoneal reflection was identified and the peritoneum was incised with [place] scissors and transversely extended. The bladder blade was inserted and the lower uterine segment was identified. A low transverse uterine incision was made sharply with a scalpel and extended laterally bluntly. The 's head was brought to the uterine incision, the bladder blade was removed and the was attempted to be delivered. The head was unable to be delivered and the fascial incision was extended laterally using sharp dissection with Green scissors. A mushroom tip vacuum extractor was applied to the 's head and attempted to deliver the . There were 2 pop offs. With the second pop-off the device became contaminated and it was discarded. The vacuum extractor was maintained around 550 mmHg on the device. After the second pop-off evaluation was made and the 's head was brought closer to the incision on the abdomen and was able to be delivered atraumatically at this time. On 06/27/2019 a live female infant was delivered in vertex position at 08:31, wt of 3720 grams, 8 pounds and 3.2 ounces. APGARS were 9 & 9. The nose and mouth were suctioned with bulb suction, the cord was doubly clamped and cut and infant was transferred to the awaiting nurse for transfer to the [facility] with waiting ice cream dipper. The placenta was removed intact and appeared normal with a three vessel cord. The uterus was exteriorized and the uterine cavity was cleaned using lap sponges. The hysterotomy was closed with a running locked suture of 0-Vicryl. A second suture of 0-Vicryl was used to imbricate the hysterotomy. The hysterotomy was hemostatic. The uterus, tubes and ovaries appeared overall normal. The uterus was then returned into the abdominal cavity. The hysterotomy was noted to have an area of bleeding near the right angle of the uterine incision. A hhnahi-ss-uakem suture with 0 Vicryl was used for hemostasis. Hemostasis was noted at this time. The fascia was noted to be hemostatic and the fascia was then reapproximated with running sutures of 0- Vicryl. The skin was reapproximated using 4-0 Monocryl and Steri-strips were applied over the incision. Instrument, sponge, and needle counts were correct prior to the abdominal closure and at the conclusion of the case.
[2019-06-27] MEDS ORDERED: ePHEDrine 50 MG/ML SDV IVPUSH PRN (11:04)
[2019-06-27] MEDS ORDERED: Ondansetron 4 MG/2 ML SDV IV PRN (11:04)
[2019-06-27] MEDS ORDERED: Naloxone 0.4 MG/ML SDV IVPUSH PRN (11:04)
[2019-06-27] MEDS ORDERED: Lactated Ringers 1,000 ML IV SCH (11:04)
[2019-06-27] MEDS ORDERED: Acetaminophen/oxyCODONE 325-5 MG Tab PO PRN (11:04)
[2019-06-27] MEDS ORDERED: Oxytocin/Lactated Ringers 10 UNIT/1,000 ML BAG IV SCH (11:04)
[2019-06-27] MEDS ORDERED: Misoprostol 200 MCG Tab PO ONE (12:16)
[2019-06-27] MEDS: Ketorolac 30 MG/ML SDV IVPUSH SCH ×2 (15:14→21:15)
[2019-06-27] MEDS: Docusate Sodium 100 MG Cap PO SCH (21:18)
[2019-06-28] MEDS: Ketorolac 30 MG/ML SDV IVPUSH SCH (04:40)
--- NOTE | 2019-06-28 10:17 | PCM.PN ---
- General Info Date of Service: 06/28/19 Functional Status: Reports: Pain Controlled - Review of Systems General: Reports: No Symptoms HEENT: Reports: No Symptoms Pulmonary: Reports: No Symptoms Cardiovascular: Reports: No Symptoms Gastrointestinal: Reports: No Symptoms Genitourinary: Reports: No Symptoms Musculoskeletal: Reports: Hand Pain (area of IV site. IV removed.) Skin: Reports: No Symptoms Neurological: Reports: No Symptoms Psychiatric: Reports: No Symptoms - Patient Data Vitals - Most Recent: Last Vital Signs Temp 98.2 F 06/28/19 08:20 Pulse 97 06/28/19 08:20 Resp 14 06/28/19 08:20 BP 124/68 06/28/19 08:20 Pulse Ox 98 06/28/19 08:20 Weight - Most Recent: 227 lb I&O - Last 24 Hours: Intake & Output 06/27/19 06/28/19 06/28/19 22:59 06:59 14:59 Intake Total 2 Output Total 650 1350 Balance -650 -1350 2 Lab Results Last 24 Hours: Laboratory Results - last 24 hr 06/27/19 06/27/19 06/27/19 Range/Units 05:45 05:45 15:10 WBC 14.41 H (3.98-10.04) K/mm3 RBC 3.90 L (3.98-5.22) M/mm3 Hgb 12.4 (11.2-15.7) gm/dl Hct 35.4 (34.1-44.9) % MCV 90.8 (79.4-94.8) fl MCH 31.8 (25.6-32.2) pg MCHC 35.0 (32.2-35.5) g/dl RDW Std Deviation 42.9 (36.4-46.3) fL Plt Count 160 L (182-369) K/mm3 MPV 9.9 (9.4-12.3) fl Neut % (Auto) 83.7 H (34.0-71.1) % Lymph % (Auto) 9.4 L (19.3-51.7) % [place] % (Auto) 6.5 (4.7-12.5) % Eos % (Auto) 0.1 L (0.7-5.8) Baso % (Auto) 0.1 (0.1-1.2) % Neut # (Auto) 12.08 H (1.56-6.13) K/mm3 Lymph # (Auto) 1.35 (1.18-3.74) K/mm3 [place] # (Auto) 0.93 H (0.24-0.36) K/mm3 Eos # (Auto) 0.01 L (0.04-0.36) K/mm3 Baso # (Auto) 0.01 (0.01-0.08) K/mm3 Manual Slide Review Abnormal smear POC Glucose (70-105) mg/dL RPR Non-reactive (NONREACTIVE) Blood Type AB NEGATIVE Gel Antibody Screen Negative Screen RhIG Candidate? Rhogam Indicated 06/27/19 06/28/19 06/28/19 Range/Units 15:10 06:28 08:20 WBC 10.62 H (3.98-10.04) K/mm3 RBC 3.50 L (3.98-5.22) M/mm3 Hgb 11.2 (11.2-15.7) gm/dl Hct 32.3 L (34.1-44.9) % MCV 92.3 (79.4-94.8) fl MCH 32.0 (25.6-32.2) pg MCHC 34.7 (32.2-35.5) g/dl RDW Std Deviation 43.6 (36.4-46.3) fL Plt Count 150 L (182-369) K/mm3 MPV 10.1 (9.4-12.3) fl Neut % (Auto) 76.4 H (34.0-71.1) % Lymph % (Auto) 13.2 L (19.3-51.7) % [place] % (Auto) 9.1 (4.7-12.5) % Eos % (Auto) 0.7 (0.7-5.8) Baso % (Auto) 0.2 (0.1-1.2) % Neut # (Auto) 8.12 H (1.56-6.13) K/mm3 Lymph # (Auto) 1.40 (1.18-3.74) K/mm3 [place] # (Auto) 0.97 H (0.24-0.36) K/mm3 Eos # (Auto) 0.07 (0.04-0.36) K/mm3 Baso # (Auto) 0.02 (0.01-0.08) K/mm3 Manual Slide Review POC Glucose 83 (70-105) mg/dL RPR (NONREACTIVE) Blood Type Cancelled Gel Antibody Screen Cancelled Screen 0 ros/5 flds - neg RhIG Candidate? Yes Rhogam Indicated Cancelled Med Orders - Current: Current Medications Diphenhydramine HCl (Benadryl) 25 mg IVPUSH Q6H PRN PRN Reason: Pruritis Last Admin: 06/27/19 13:06 Dose: 25 mg Diphenhydramine HCl (Benadryl) 25 mg IVPUSH Q6H PRN PRN Reason: Itching or Nausea Docusate Sodium (Colace) 100 mg PO BID JORDI Last Admin: 06/27/19 21:18 Dose: 100 mg Ephedrine Sulfate (Ephedrine Sulfate) 5 mg IVPUSH SEECOMMENT PRN PRN Reason: Other Fentanyl (Sublimaze) 50 mcg IVPUSH Q5M PRN PRN Reason: Pain Oxytocin/Lactated Ringer's (Pitocin In Lr 10 Units/1,000 Ml) 10 unit in 1,000 mls @ 100 mls/hr IV .CONTINUOUS JORDI Naloxone HCl (Narcan) 0.1 mg IVPUSH SEECOMMENT PRN PRN Reason: Respiratory Depression Ondansetron HCl (Zofran) 4 mg IVPUSH ONETIME PRN PRN Reason: Nausea/Vomiting Last Admin: 06/27/19 12:04 Dose: 4 mg Ondansetron HCl (Zofran) 4 mg IV Q8H PRN PRN Reason: Nausea/Vomiting Oxycodone/Acetaminophen (Percocet 325-5 Mg) 1 tab PO Q6H PRN PRN Reason: Pain (moderate 4-6) Oxycodone/Acetaminophen (Percocet 325-5 Mg) 2 tab PO Q6H PRN PRN Reason: Pain (severe 7-10) Prenat Multivit/[place]/Iron/Folic Ac ( Plus Iron) 1 each PO DAILY JORDI Discontinued Medications Bupivacaine HCl (Marcaine 0.5%) Confirm Administered Dose 30 ml .ROUTE .STK-MED ONE Stop: 06/27/19 07:30 Last Admin: 06/27/19 08:21 Dose: 20 ml Cefazolin Sodium (Ancef) Confirm Administered Dose 2 gm .ROUTE .STK-MED ONE Stop: 06/27/19 07:13 Citric Acid/Sodium Citrate (Bicitra Solution) 30 ml PO ONETIME ONE Stop: 06/27/19 04:52 Last Admin: 06/27/19 06:57 Dose: 30 ml Citric Acid/Sodium Citrate (Bicitra Solution) Confirm Administered Dose 30 ml .ROUTE .STK-MED ONE Stop: 06/27/19 06:55 Last Admin: 06/27/19 18:13 Dose: Not Given Cefazolin Sodium/Dextrose 2 gm (/ Premix) 50 mls @ 100 mls/hr IV ONETIME ONE Stop: 06/27/19 05:20 Last Admin: 06/27/19 18:13 Dose: Not Given Lactated Ringer's (Ringers, Lactated) 1,000 mls @ 125 mls/hr IV ASDIRECTED [facility] Oxytocin/Lactated Ringer's (Pitocin In Lr 10 Units/1,000 Ml) 10 unit in 1,000 mls @ 100 mls/hr IV ASDIRECTED [facility] Lactated Ringer's (Ringers, Lactated) Confirm Administered Dose 1,000 mls @ as directed .ROUTE .[facility]-MED ONE Stop: 06/27/19 05:54 Last Admin: 06/27/19 18:13 Dose: Not Given Lactated Ringer's (Ringers, Lactated) Confirm Administered Dose 2,000 mls @ as directed .ROUTE .STK-MED ONE Stop: 06/27/19 07:13 Lactated Ringer's (Ringers, Lactated) Confirm Administered Dose 1,000 mls @ as directed .ROUTE .ST-MED ONE Stop: 06/27/19 09:04 Lactated Ringer's (Ringers, Lactated) 1,000 mls @ 125 mls/hr IV ASDIRECTED [facility] Stop: 06/27/19 19:03 Last Admin: 06/27/19 11:22 Dose: 125 mls/hr Ketorolac Tromethamine (Toradol) Confirm Administered Dose 30 mg .ROUTE .STK- MED ONE Stop: 06/27/19 07:13 Ketorolac Tromethamine (Toradol) 30 mg IVPUSH Q6H [facility] Stop: 06/28/19 03:01 Last Admin: 06/28/19 04:40 Dose: 30 mg Metoclopramide HCl (Reglan) 10 mg IVPUSH ONETIME ONE Stop: 06/27/19 04:52 Last Admin: 06/27/19 07:01 Dose: 10 mg Metoclopramide HCl (Reglan) Confirm Administered Dose 10 mg .ROUTE .STK-MED ONE Stop: 06/27/19 07:00 Last Admin: 06/27/19 18:14 Dose: Not Given Misoprostol (Cytotec) 1,000 mcg PO ONETIME ONE Stop: 06/27/19 12:17 Last Admin: 06/27/19 12:32 Dose: 1,000 mcg Morphine Sulfate (Duramorph Pf) Confirm Administered Dose 10 mg .ROUTE .STK-MED ONE Stop: 06/27/19 07:13 Nalbuphine HCl (Nubain) 10 mg IVPUSH Q2H PRN PRN Reason: Pain Ondansetron HCl (Zofran) Confirm Administered Dose 4 mg .ROUTE .STK-MED ONE Stop: 06/27/19 06:55 Last Admin: 06/27/19 18:13 Dose: Not Given Ondansetron HCl (Zofran) Confirm Administered Dose 4 mg .ROUTE .STK-MED ONE Stop: 06/27/19 07:13 Oxytocin (Pitocin) Confirm Administered Dose 20 unit .ROUTE .STK-MED ONE Stop: 06/27/19 07:13 Phenylephrine HCl (Phenylephrine In Ns 100 Mcg/Ml) Confirm Administered Dose 1 mg .ROUTE .STK-MED ONE Stop: 06/27/19 09:04 Sodium Chloride (Saline Flush) 10 ml FLUSH ASDIRECTED PRN PRN Reason: Keep Vein Open - Exam General: Alert, Oriented HEENT: Mucous Membr. Moist/[place] Neck: Supple Lungs: Clear to Auscultation, Normal Respiratory Effort Cardiovascular: Regular Rate, Regular Rhythm GI/Abdominal Exam: Normal Bowel Sounds, Soft, Non-Tender, Other (uterus involuting normally) Extremities: Normal Inspection, Normal Range of Motion, Non-Tender, No Pedal Edema, Normal Capillary Refill Skin: Warm, Dry, Intact Psy/Mental Status: Alert, Normal Affect, Normal Mood - Problem List & Annotations (1) delivery delivered SNOMED Code(s): 097781377 Code(s): O82 - ENCOUNTER FOR DELIVERY WITHOUT INDICATION Status: Acute Current Visit: Yes (2) 39 weeks gestation of SNOMED Code(s): 82238976 Code(s): Z3A.39 - 39 WEEKS GESTATION OF Status: Acute Current Visit: No (3) GBS (group B Streptococcus carrier), +RV culture, currently SNOMED Code(s): 3735111767313, 652295019, 2847532461426 Code(s): O99.820 - STREPTOCOCCUS B CARRIER STATE COMPLICATING Status: Acute Current Visit: No - Problem List Review Problem List Initiated/Reviewed/Updated: No - Assessment Assessment:: doing well. - Plan Plan:: Admit to inpatient after section NST prior to section Place IV and have Lactated Ringer's at 125 ml/hr SCDs for DVT prophylaxis Nothing by mouth Activity as tolerated Plan for spinal injection for anesthesia CBC, RPR and type and screen prior to surgery Plans to breast-feed after delivery We will follow up on 's blood type to check for need for RhoGAM after delivery. Plan for Ancef 2 g IV for antibiotic prophylaxis prior to surgery Mina Polanco M.D. 4:00 p.m. 06/20/2019
[2019-06-28] MEDS: Prenatal Multivitamin with Calcium/Folic Acid/Iron Tab PO SCH (10:32)
[2019-06-28] MEDS: Docusate Sodium 100 MG Cap PO SCH ×2 (10:32→21:06)
--- NOTE | 2019-06-28 12:52 | PCM48HPAN ---
Post Anesthesia Note - EVALUATION WITHIN 48HRS OF ANESTHETIC Vital Signs in Normal Range: Yes Patient Participated in Evaluation: Yes Respiratory Function Stable: Yes Airway Patent: Yes Cardiovascular Function Stable: Yes Hydration Status Stable: Yes Pain Control Satisfactory: Yes Nausea and Vomiting Control Satisfactory: Yes Mental Status Recovered: Yes Vital Signs: Last Vital Signs Temp 98.2 F 06/28/19 08:20 Pulse 97 06/28/19 08:20 Resp 14 06/28/19 08:20 BP 124/68 06/28/19 08:20 Pulse Ox 98 06/28/19 08:20 - COMMENTS/OBSERVATIONS Free Text/Narrative:: Patient on her postoperative day 1. Patient has stated understanding about possible backaches following epidural / spinal anesthesia. Patient denies any headache, lightheadedness or backache at this time. Ambulating, no difficulty urinating.
[2019-06-28] MEDS: Ibuprofen 600 MG Tab PO PRN ×2 (15:27→21:08)
[2019-06-29] MEDS: Acetaminophen/oxyCODONE 325-5 MG Tab PO PRN ×3 (01:27→13:41)
[2019-06-29] MEDS: Ibuprofen 600 MG Tab PO PRN ×2 (04:48→12:06)
[2019-06-29] MEDS: Docusate Sodium 100 MG Cap PO SCH ×2 (07:49→09:34)
[2019-06-29] MEDS: Prenatal Multivitamin with Calcium/Folic Acid/Iron Tab PO SCH ×2 (07:49→15:01)
--- NOTE | 2019-06-29 08:49 | PCM.SN ---
- Free Text/Narrative Note: Post Operative Progress Note POD # 2 Subjective: Doing well overall. Ambulating without difficulty. Lochia minimal. Voiding without difficulty. Passing flatus and has not had a bowel movement at this time. Tolerating regular diet without nausea or vomiting. Pain controlled with oral medications. Breast feeding with formula supplementation with minimal difficulty. Objective: Vitals: Vital Signs - 24 hr 06/28/19 06/28/19 06/29/19 15:19 20:42 04:47 Temperature 36.8 C 36.6 C 36.9 C Pulse, 99 98 95 Peripheral Respiratory 14 16 15 Rate Blood Pressure 124/70 120/81 131/76 O2 Sat by Pulse 98 97 94 L Oximetry Physical Exam General: Alert and oriented, no acute distress Lungs: Clear to auscultation bilaterally Heart: Regular rate and rhythm Abdomen: Soft, minimal appropriate tenderness, non-distended, fundus midline, nontender and at the umbilicus Incision: Clean, dry and intact, no erythema or drainage with Steri-Strips in place. There is a small area with a spot of blood to the left of midline but does not have any active bleeding. No separation noted. Extremities: Trace edema in bilateral lower extremity stump shins ASSESSMENT: 34-year-old female s/p repeat section POD #2 for history of section, complicated by A2 gestational diabetes, history of section 3, Rh- status and received RhoGAM on postop day #1, advanced maternal age and ancestry PLAN: Doing well Breast-feeding with formula supplementation with minimal difficulty. Assist as needed Incision healing well. Continue to keep clean and dry. Lochia minimal. Continue to monitor for appropriate lochia. Mother with a B- blood type and infant with the positive blood type. The patient received RhoGAM on postoperative day #1. Continue routine post-operative care Anticipate discharge home today Mina Polanco MD 8:47 AM 06/29/2019
--- NOTE | 2019-06-29 08:54 | PCM.DCSUM1 ---
Discharge Summary - Hospital Course Free Text/Narrative:: Procedure in Detail: The patient was seen on labor and delivery in room #4 and the risks, benefits and complications were discussed with the patient. The patient desired to proceed with section and appropriate consents were signed. The patient was taken to operating room #1. A Time Out was held and the patient was identified using 2 identifiers and the procedure was confirmed. The patient was given spinal anesthesia and was placed in dorsal supine position with leftward tilt. She was given 2 g Ancef for antibiotic prophylaxis. The patient was prepped and draped in the usual sterile manner. The abdominal skin was tested and the spinal anesthesia was found to be adequate. The skin was injected with 0.5% marcaine for local anesthesia. A Pfannenstiel skin incision was made and carried down through the subcutaneous tissue to the fascia with the scapel. The fascia was nicked in the midline using a scalpel and the fascial incision was extended transversely with Green scissors. The inferior aspect of the fascia was grasped with Guerrero clamps and tented upwards. The fascia was from the underlying rectus muscle bluntly and sharply with Green scissors. Attention was then turned to the superior aspect of the fascia and was grasped using Guerrero clamps and tented upwards. The underlying rectus muscle was dissected off bluntly and sharply with Green scissors. The peritoneum was identified and entered sharply with dissection using Green scissors. The utero-vesical peritoneal reflection was identified and the peritoneum was incised with Metzenabaum scissors and transversely extended. The bladder blade was inserted and the lower uterine segment was identified. A low transverse uterine incision was made sharply with a scalpel and extended laterally bluntly. The 's head was brought to the uterine incision, the bladder blade was removed and the was attempted to be delivered. The head was unable to be delivered and the fascial incision was extended laterally using sharp dissection with Green scissors. A mushroom tip vacuum extractor was applied to the 's head and attempted to deliver the infant. There were 2 pop offs. With the second pop-off the device became contaminated and it was discarded. The vacuum extractor was maintained around 550 mmHg on the device. After the second pop-off evaluation was made and the 's head was brought closer to the incision on the abdomen and was able to be delivered atraumatically at this time. On 06/27/2019 a live female was delivered in vertex position at 08:31, wt of 3720 grams, 8 pounds and 3.2 ounces. APGARS were 9 & 9. The nose and mouth were suctioned with bulb suction, the cord was doubly clamped and cut and was transferred to the awaiting nurse for transfer to the banner with waiting child life assistant. The placenta was removed intact and appeared normal with a three vessel cord. The uterus was exteriorized and the uterine cavity was cleaned using lap sponges. The hysterotomy was closed with a running locked suture of 0-Vicryl. A second suture of 0-Vicryl was used to imbricate the hysterotomy. The hysterotomy was hemostatic. The uterus, tubes and ovaries appeared overall normal. The uterus was then returned into the abdominal cavity. The hysterotomy was noted to have an area of bleeding near the right angle of the uterine incision. A [id number] suture with 0 Vicryl was used for hemostasis. Hemostasis was noted at this time. The fascia was noted to be hemostatic and the fascia was then reapproximated with running sutures of 0- Vicryl. The skin was reapproximated using 4-0 Monocryl and Steri-strips were applied over the incision. Instrument, sponge, and needle counts were correct prior to the abdominal closure and at the conclusion of the case. HPI Initial Comments: Procedure in Detail: The patient was seen on labor and delivery in room #4 and the risks, benefits and complications were discussed with the patient. The patient desired to proceed with section and appropriate consents were signed. The patient was taken to operating room #1. A Time Out was held and the patient was identified using 2 identifiers and the procedure was confirmed. The patient was given spinal anesthesia and was placed in dorsal supine position with leftward tilt. She was given 2 g Ancef for antibiotic prophylaxis. The patient was prepped and draped in the usual sterile manner. The abdominal skin was tested and the spinal anesthesia was found to be adequate. The skin was injected with 0.5% marcaine for local anesthesia. A Pfannenstiel skin incision was made and carried down through the subcutaneous tissue to the fascia with the scapel. The fascia was nicked in the midline using a scalpel and the fascial incision was extended transversely with Green scissors. The inferior aspect of the fascia was grasped with Guerrero clamps and tented upwards. The fascia was from the underlying rectus muscle bluntly and sharply with Green scissors. Attention was then turned to the superior aspect of the fascia and was grasped using Guerrero clamps and tented upwards. The underlying rectus muscle was dissected off bluntly and sharply with Green scissors. The peritoneum was identified and entered sharply with dissection using Green scissors. The utero-vesical peritoneal reflection was identified and the peritoneum was incised with Metzenabaum scissors and transversely extended. The bladder blade was inserted and the lower uterine segment was identified. A low transverse uterine incision was made sharply with a scalpel and extended laterally bluntly. The 's head was brought to the uterine incision, the bladder blade was removed and the was attempted to be delivered. The head was unable to be delivered and the fascial incision was extended laterally using sharp dissection with Green scissors. A mushroom tip vacuum extractor was applied to the 's head and attempted to deliver the . There were 2 pop offs. With the second pop-off the device became contaminated and it was discarded. The vacuum extractor was maintained around 550 mmHg on the device. After the second pop-off evaluation was made and the 's head was brought closer to the incision on the abdomen and was able to be delivered atraumatically at this time. On 06/27/2019 a live female infant was delivered in vertex position at 08:31, wt of 3720 grams, 8 pounds and 3.2 ounces. APGARS were 9 & 9. The nose and mouth were suctioned with bulb suction, the cord was doubly clamped and cut and was transferred to the awaiting nurse for transfer to the banner with waiting child life assistant. The placenta was removed intact and appeared normal with a three vessel cord. The uterus was exteriorized and the uterine cavity was cleaned using lap sponges. The hysterotomy was closed with a running locked suture of 0-Vicryl. A second suture of 0-Vicryl was used to imbricate the hysterotomy. The hysterotomy was hemostatic. The uterus, tubes and ovaries appeared overall normal. The uterus was then returned into the abdominal cavity. The hysterotomy was noted to have an area of bleeding near the right angle of the uterine incision. A [id number] suture with 0 Vicryl was used for hemostasis. Hemostasis was noted at this time. The fascia was noted to be hemostatic and the fascia was then reapproximated with running sutures of 0- Vicryl. The skin was reapproximated using 4-0 Monocryl and Steri-strips were applied over the incision. Instrument, sponge, and needle counts were correct prior to the abdominal closure and at the conclusion of the case. Brief History: Procedure in Detail: The patient was seen on labor and delivery in room #4 and the risks, benefits and complications were discussed with the patient. The patient desired to proceed with section and appropriate consents were signed. The patient was taken to operating room #1. A Time Out was held and the patient was identified using 2 identifiers and the procedure was confirmed. The patient was given spinal anesthesia and was placed in dorsal supine position with leftward tilt. She was given 2 g Ancef for antibiotic prophylaxis. The patient was prepped and draped in the usual sterile manner. The abdominal skin was tested and the spinal anesthesia was found to be adequate. The skin was injected with 0.5% marcaine for local anesthesia. A Pfannenstiel skin incision was made and carried down through the subcutaneous tissue to the fascia with the scapel. The fascia was nicked in the midline using a scalpel and the fascial incision was extended transversely with Green scissors. The inferior aspect of the fascia was grasped with Guerrero clamps and tented upwards. The fascia was from the underlying rectus muscle bluntly and sharply with Green scissors. Attention was then turned to the superior aspect of the fascia and was grasped using Guerrero clamps and tented upwards. The underlying rectus muscle was dissected off bluntly and sharply with Green scissors. The peritoneum was identified and entered sharply with dissection using Green scissors. The utero-vesical peritoneal reflection was identified and the peritoneum was incised with Metzenabaum scissors and transversely extended. The bladder blade was inserted and the lower uterine segment was identified. A low transverse uterine incision was made sharply with a scalpel and extended laterally bluntly. The 's head was brought to the uterine incision, the bladder blade was removed and the was attempted to be delivered. The head was unable to be delivered and the fascial incision was extended laterally using sharp dissection with Green scissors. A mushroom tip vacuum extractor was applied to the infant's head and attempted to deliver the infant. There were 2 pop offs. With the second pop-off the device became contaminated and it was discarded. The vacuum extractor was maintained around 550 mmHg on the device. After the second pop-off evaluation was made and the infant's head was brought closer to the incision on the abdomen and was able to be delivered atraumatically at this time. On 06/27/2019 a live female was delivered in vertex position at 08:31, wt of 3720 grams, 8 pounds and 3.2 ounces. APGARS were 9 & 9. The nose and mouth were suctioned with bulb suction, the cord was doubly clamped and cut and infant was transferred to the awaiting nurse for transfer to the banner with waiting child life assistant. The placenta was removed intact and appeared normal with a three vessel cord. The uterus was exteriorized and the uterine cavity was cleaned using lap sponges. The hysterotomy was closed with a running locked suture of 0-Vicryl. A second suture of 0-Vicryl was used to imbricate the hysterotomy. The hysterotomy was hemostatic. The uterus, tubes and ovaries appeared overall normal. The uterus was then returned into the abdominal cavity. The hysterotomy was noted to have an area of bleeding near the right angle of the uterine incision. A figure-of- eight suture with 0 Vicryl was used for hemostasis. Hemostasis was noted at this time. The fascia was noted to be hemostatic and the fascia was then reapproximated with running sutures of 0-Vicryl. The skin was reapproximated using 4-0 Monocryl and Steri-strips were applied over the incision. Instrument , sponge, and needle counts were correct prior to the abdominal closure and at the conclusion of the case. Diagnosis: Stroke: No - Discharge Data Discharge Date: 06/29/19 Discharge Disposition: Home, Self-Care 01 Condition: Good - Referral to Home Health Primary Care Physician: Mina Polanco MD - Discharge Diagnosis/Problem(s) (1) 39 weeks gestation of SNOMED Code(s): 28647773 ICD Code: Z3A.39 - 39 WEEKS GESTATION OF Status: Acute Current Visit: No (2) Oral hypoglycemic controlled White classification A2 gestational diabetes mellitus (GDM) SNOMED Code(s): 68988716 ICD Code: O24.415 - GESTATNL DIABETES IN PREG, CTRL BY ORAL HYPOGLYCEMIC DRUGS Status: Acute Current Visit: No (3) History of delivery SNOMED Code(s): 865243894 ICD Code: Z98.891 - HISTORY OF UTERINE SCAR FROM PREVIOUS SURGERY Status: Acute Current Visit: No (4) History of delivery, currently SNOMED Code(s): 070552143, 001003446 ICD Code: O34.219 - MATERNAL CARE FOR UNSP TYPE SCAR FROM PREVIOUS DEL Status: Acute Current Visit: No (5) Rh negative status during SNOMED Code(s): 190669651 ICD Code: O26.899 - OTH RELATED CONDITIONS, UNSPECIFIED TRIMESTER; Z67.91 - UNSPECIFIED BLOOD TYPE, RH NEGATIVE Status: Acute Current Visit: No (6) Advanced maternal age in multigravida SNOMED Code(s): 289891530 ICD Code: O09.529 - SUPERVISION OF ELDERLY MULTIGRAVIDA, UNSPECIFIED TRIMESTER Status: Acute Current Visit: No (7) ancestry requiring population-specific genetic screening SNOMED Code(s): 04742693, 618523209, 083502494 ICD Code: Z13.79 - ENCNTR FOR OTH SCREENING FOR GENETIC AND CHROMSOML ANOMALIES Status: Acute Current Visit: No (8) GBS (group B Streptococcus carrier), +RV culture, currently SNOMED Code(s): 1311904168558, 124251802, 1518082858678 ICD Code: O99.820 - STREPTOCOCCUS B CARRIER STATE COMPLICATING Status: Acute Current Visit: No (9) hemorrhage, delivered SNOMED Code(s): 56727383, 937907490 ICD Code: O72.1 - OTHER IMMEDIATE HEMORRHAGE Status: Acute Current Visit: Yes (10) delivery delivered SNOMED Code(s): 373835215 ICD Code: O82 - ENCOUNTER FOR DELIVERY WITHOUT INDICATION Status: Acute Current Visit: Yes - Patient Summary/Data Operative Procedure(s) Performed: Repeat section with with attempted vacuum extraction delivery with 2 pop offs with attempted vacuum extraction delivery of infant and delivered without use of vacuum extractor Complications: hemorrhage with EBL of 1200 mL during procedure Hospital Course: Kiki Stockton was admitted for scheduled repeat section secondary to history of section 3. She was taken back to the OR and given spinal injection for anesthesia. She was given Ancef 2 g IV for antibiotic prophylaxis. She was prepped and draped in the normal fashion. On 06/27/2019 she had a normal delivery of a live female at 08:31. Apgars of 9 and 9. Weight of 3720 g (8 pounds 3.2 ounces). She was closed in a normal fashion. The procedure was complicated by use of vacuum extractor to bring 's head closer to the uterine incision but was delivered without use of vacuum extractor and hemorrhage of 1200 mL during the procedure. Please see the operative report for full details. Her post operative course was uneventful. Her pain was well controlled and she had minimal lochia. She was ambulating, tolerating a regular diet and voiding normally. She was passing flatus and has not had a bowel movement. She was breast feeding with formula supplementation with minimal difficulty. She was afebrile and her hematocrit was 32.3 on POD #1. She desired to be discharged home on the morning of POD #2. Her blood type is AB- and infant's blood type is B+. Patient received RhoGAM on postoperative day #1. - Patient Instructions Diet: Regular Diet as Tolerated Activity: Apply Ice, As Tolerated, No Lifting Over 20 Pounds Activity, Other: Nothing in the vagina for 6 weeks Driving: Do Not Drive (While taking narcotic medications or having significant pain.) Showering/Bathing: May Shower Wound/Incision Care: Keep Operative Site/Wound Site Clean and Dry Notify Provider of: Fever, Increased Pain, Swelling and Redness, Drainage, Nausea and/or Vomiting Other/Special Instructions: Please contact your physician's office if you note any bleeding or pus coming from the abdominal incision. Please contact your physician's office if you have heavy vaginal bleeding enough to soak a pad in less than an hour for several hours. Monitor for any signs of an infection in the breasts with severe pain or redness of the breast. - Discharge Plan *PRESCRIPTION DRUG MONITORING PROGRAM REVIEWED*: Yes *COPY OF PRESCRIPTION DRUG MONITORING REPORT IN PATIENT MARILEE: Yes Prescriptions/Med Rec: Acetaminophen/oxyCODONE [Percocet 325-5 MG] 1 - 2 tab PO Q6H PRN #30 tablet PRN Reason: Pain Docusate Sodium [Colace] 100 mg PO BID #60 cap Home Medications: Home Meds 148/Iron/Folate 6/Dha [Tendera-Ob Softgel] 1 cap PO DAILY 01/10/19 [ History] Acetaminophen/oxyCODONE [Percocet 325-5 MG] 1 - 2 tab PO Q6H PRN #30 tablet [Rx] Docusate Sodium [Colace] 100 mg PO BID #60 cap 06/29/19 [Rx] Ibuprofen [Motrin] 600 mg PO Q4HR PRN tablet 06/29/19 [Rx] Patient Handouts: Care After Delivery Referrals: Mina Polanco MD [Primary Care Provider] - (Follow-up in 2 weeks for routine postoperative appointment or earlier as needed.) - Discharge Summary/Plan Comment DC Time >30 min.: No - Patient Data Vitals - Most Recent: Last Vital Signs Temp 36.9 C 06/29/19 04:47 Pulse 95 06/29/19 04:47 Resp 15 06/29/19 04:47 BP 131/76 06/29/19 04:47 Pulse Ox 94 L 06/29/19 04:47 Weight - Most Recent: 102.965 kg I&O - Last 24 hours: Intake & Output 06/28/19 06/29/19 06/29/19 22:59 06:59 14:59 Intake Total 180 Balance 180 Lab Results - Last 24 hrs: Laboratory Results - last 24 hr 06/27/19 Range/Units 15:10 Blood Type Cancelled Gel Antibody Screen Cancelled Screen 0 ros/5 flds - neg RhIG Candidate? Yes Rhogam Indicated Cancelled Med Orders - Current: Current Medications Diphenhydramine HCl (Benadryl) 25 mg IVPUSH Q6H PRN PRN Reason: Pruritis Last Admin: 06/27/19 13:06 Dose: 25 mg Diphenhydramine HCl (Benadryl) 25 mg IVPUSH Q6H PRN PRN Reason: Itching or Nausea Docusate Sodium (Colace) 100 mg PO BID JORDI Last Admin: 06/29/19 07:49 Dose: 100 mg Ephedrine Sulfate (Ephedrine Sulfate) 5 mg IVPUSH SEECOMMENT PRN PRN Reason: Other Fentanyl (Sublimaze) 50 mcg IVPUSH Q5M PRN PRN Reason: Pain Oxytocin/Lactated Ringer's (Pitocin In Lr 10 Units/1,000 Ml) 10 unit in 1,000 mls @ 100 mls/hr IV .CONTINUOUS JORDI Ibuprofen (Motrin) 600 mg PO Q4HR PRN PRN Reason: Pain Last Admin: 06/29/19 04:48 Dose: 600 mg Loratadine (Claritin) 10 mg PO ONETIME ONE Stop: 06/29/19 09:01 Naloxone HCl (Narcan) 0.1 mg IVPUSH SEECOMMENT PRN PRN Reason: Respiratory Depression Ondansetron HCl (Zofran) 4 mg IVPUSH ONETIME PRN PRN Reason: Nausea/Vomiting Last Admin: 06/27/19 12:04 Dose: 4 mg Ondansetron HCl (Zofran) 4 mg IV Q8H PRN PRN Reason: Nausea/Vomiting Oxycodone/Acetaminophen (Percocet 325-5 Mg) 1 tab PO Q6H PRN PRN Reason: Pain (moderate 4-6) Last Admin: 06/28/19 18:58 Dose: 1 tab Oxycodone/Acetaminophen (Percocet 325-5 Mg) 2 tab PO Q6H PRN PRN Reason: Pain (severe 7-10) Last Admin: 06/29/19 07:49 Dose: 2 tab Prenat Multivit/Sales And Leasing Agent/Iron/Folic Ac ( Plus Iron) 1 each PO DAILY JORDI Last Admin: 06/29/19 07:49 Dose: 1 each Discontinued Medications Bupivacaine HCl (Marcaine 0.5%) Confirm Administered Dose 30 ml .ROUTE .STK-MED ONE Stop: 06/27/19 07:30 Last Admin: 06/27/19 08:21 Dose: 20 ml Cefazolin Sodium (Ancef) Confirm Administered Dose 2 gm .ROUTE .STK-MED ONE Stop: 06/27/19 07:13 Citric Acid/Sodium Citrate (Bicitra Solution) 30 ml PO ONETIME ONE Stop: 06/27/19 04:52 Last Admin: 06/27/19 06:57 Dose: 30 ml Citric Acid/Sodium Citrate (Bicitra Solution) Confirm Administered Dose 30 ml .ROUTE .STK-MED ONE Stop: 06/27/19 06:55 Last Admin: 06/27/19 18:13 Dose: Not Given Cefazolin Sodium/Dextrose 2 gm (/ Premix) 50 mls @ 100 mls/hr IV ONETIME ONE Stop: 06/27/19 05:20 Last Admin: 06/27/19 18:13 Dose: Not Given Lactated Ringer's (Ringers, Lactated) 1,000 mls @ 125 mls/hr IV ASDIRECTED [facility] Oxytocin/Lactated Ringer's (Pitocin In Lr 10 Units/1,000 Ml) 10 unit in 1,000 mls @ 100 mls/hr IV ASDIRECTED [facility] Lactated Ringer's (Ringers, Lactated) Confirm Administered Dose 1,000 mls @ as directed .ROUTE .STK-MED ONE Stop: 06/27/19 05:54 Last Admin: 06/27/19 18:13 Dose: Not Given Lactated Ringer's (Ringers, Lactated) Confirm Administered Dose 2,000 mls @ as directed .ROUTE .STK-MED ONE Stop: 06/27/19 07:13 Lactated Ringer's (Ringers, Lactated) Confirm Administered Dose 1,000 mls @ as directed .ROUTE .STK-MED ONE Stop: 06/27/19 09:04 Lactated Ringer's (Ringers, Lactated) 1,000 mls @ 125 mls/hr IV ASDIRECTED [facility] Stop: 06/27/19 19:03 Last Admin: 06/27/19 11:22 Dose: 125 mls/hr Ketorolac Tromethamine (Toradol) Confirm Administered Dose 30 mg .ROUTE .STK- MED ONE Stop: 06/27/19 07:13 Ketorolac Tromethamine (Toradol) 30 mg IVPUSH Q6H [facility] Stop: 06/28/19 03:01 Last Admin: 06/28/19 04:40 Dose: 30 mg Metoclopramide HCl (Reglan) 10 mg IVPUSH ONETIME ONE Stop: 06/27/19 04:52 Last Admin: 06/27/19 07:01 Dose: 10 mg Metoclopramide HCl (Reglan) Confirm Administered Dose 10 mg .ROUTE .STK-MED ONE Stop: 06/27/19 07:00 Last Admin: 06/27/19 18:14 Dose: Not Given Misoprostol (Cytotec) 1,000 mcg PO ONETIME ONE Stop: 06/27/19 12:17 Last Admin: 06/27/19 12:32 Dose: 1,000 mcg Morphine Sulfate (Duramorph Pf) Confirm Administered Dose 10 mg .ROUTE .STK-MED ONE Stop: 06/27/19 07:13 Nalbuphine HCl (Nubain) 10 mg IVPUSH Q2H PRN PRN Reason: Pain Ondansetron HCl (Zofran) Confirm Administered Dose 4 mg .ROUTE .STK-MED ONE Stop: 06/27/19 06:55 Last Admin: 06/27/19 18:13 Dose: Not Given Ondansetron HCl (Zofran) Confirm Administered Dose 4 mg .ROUTE .STK-MED ONE Stop: 06/27/19 07:13 Oxytocin (Pitocin) Confirm Administered Dose 20 unit .ROUTE .STK-MED ONE Stop: 06/27/19 07:13 Phenylephrine HCl (Phenylephrine In Ns 100 Mcg/Ml) Confirm Administered Dose 1 mg .ROUTE .STK-MED ONE Stop: 06/27/19 09:04 Sodium Chloride (Saline Flush) 10 ml FLUSH ASDIRECTED PRN PRN Reason: Keep Vein Open
[2019-06-29] MEDS ORDERED: Loratadine 10 MG Tab PO ONE (09:00)
== END 2019-06-29 14:30 | disposition home or self-care (01) | DRG 540 ==
LOC: JD.OB 05:13
PROVIDERS: ADMIT Obstetrics & Gynecology; ATTEND Obstetrics & Gynecology
PROC: 10D00Z1 Extraction of Products of Conception, Low, Open Approach (ICD-10-PCS; principal; 2019-06-27)
PROC: 3E0334Z Introduction of Serum, Toxoid and Vaccine into Peripheral Vein, Percutaneous Approach (ICD-10-PCS; 2019-06-27)
DX: O34.211 Maternal care for low transverse scar from previous cesarean delivery (principal); O24.425 Gestational diabetes mellitus in childbirth, controlled by oral hypoglycemic drugs; Z3A.39 39 weeks gestation of pregnancy; Z37.0 Single live birth; O99.89 Other specified diseases and conditions complicating pregnancy, childbirth and the puerperium; Z67.91 Unspecified blood type, Rh negative; Z13.79 Encounter for other screening for genetic and chromosomal anomalies; O99.824 Streptococcus B carrier state complicating childbirth; O72.1 Other immediate postpartum hemorrhage; Z79.899 Other long term (current) drug therapy; Z29.13 Encounter for prophylactic Rho(D) immune globulin
CPT/HCPCS: 36415; 59025; 82962; 85025; 85461; 86592; 86850; 86900; 86901; 94762; A9270-GY; J0690; J1200; J1885; J2270; J2370; J2405; J2590; J2765; J2790; J3490; J7120